=== PATIENT | female | born 1950 | race Caucasian/White ===

== ENCOUNTER → 2016-07-21 | Outpatient (CLI) | payer MEDICARE, BC ==
[~2016-07-21] MED LIST: ALEVE220 MG PO; AZITHROMYCIN250 MG PO; CARDIZEM CD)(T180 MG PO; CENTRUM SILVER1 EAC1 PO; CYMBALTA60 MG PO; MOBIC15 MG PO; MULTIPLE VITAM1 EACH PO; NEURONTIN100 MG PO; OSPHENA60 MG PO; PERCOCET 5-3251 EACH PO; PRAVACHOL20 MG PO; PROBIOTIC1 EAC1 PO; PROVENTIL HFA6.7 GM INH; SANCTURA 20MG20 MG PO; SINGULAIR10 MG PO; SODIUM BICARBONATE PO; SYMBICORT 16010.2 GM INH; ULTRAM50 MG PO; VENLAFAXINE H37.5 MG PO; VITAMIN B-121000 MCG PO; VITAMIN D35000 UNI1 PO; XOPENEX HF45 MCG/INH INH; ZITHROMAX250 MG PO
--- NOTE | ~2016-07-21 | ESTC ---
Cardiac Perfusion Imaging Demographics Patient Name KATHY BISHOP Gender Female A Patient Number [id number] Race Visit Number [id number] Ethnicity Corporate ID Room Number Accession Number [id number] Height Date of 1950 Weight Age 66 year(s) BSA Referring Physician Ta Escamilla Interpreting Ta Date of study 07/21/2016 Physician Francine Supervising /MAGDALENA PERES Technologist Francine Ordering Physician Stress Becki Vargas non destructive evaluation technician RUST Elder Meehan Stress ECG Reading Ta Gomez Physician Francine Procedure Procedure Type: Nuclear Stress Test:Cardiolite Stress Test Procedure Start time: 07/21/2016 09:30 Indications: Tachycardia. Conclusions Summary Perfusion Images: The overall quality of the study is fair, due to gastrointestinal tracer uptake. Left ventricular cavity is noted to be normal on the stress and rest studies. The right ventricle is not visualized and cannot be assessed. Stress SPECT images demonstrate homogenous tracer distribution throughout the myocardium except for a decrease uptake in the area involving the distal anterior wall with no significant reversibility and preserved wall motion consistent with soft tissue attenuation. Gated SPECT imaging reveals normal myocardial thickening and wall motion. The left ventricular ejection fraction was calculated to be 67%. Impression ECG portion of stress test is clinically negative for ischemia by diagnostic criteria. Myocardial perfusion imaging is probably normal. The distal anterior wall matched defect is consistent with soft tissue attenuation. Overall left ventricular systolic function was normal without regional wall motion abnormalities. Stress Protocols Resting ECG Normal sinus rhythm. Pre-stress physical exam: Patient assessed by Dr Fuentes prior to testing. Stress Protocol:Pharmacologic Peak HR:93 bpm HR/BP product:[id number] Peak BP:155/78 mmHg Predicted HR: 156 bpm % of predicted HR: 60 Test duration: 05:00 min Reason for termination:Infusion complete ECG Findings No ECG changes suggestive of ischemia. Arrhythmias No rhythm abnormality. Symptoms No symptoms with Lexiscan infusion. Stress Interpretation ECG portion of stress test is negative for ischemia by diagnostic criteria. Imaging Results Summed scores - Summed stress score: 17 - Summed rest score: 3 - Summed difference score: 14 Stress ejection Ejection fraction:67 % EDV :97 ml ESV :32 ml Stroke volume :65 ml LV mass :132 gr Imaging Protocols Rest Stress Isotope:Tc99m Sestamibi IV Isotope: Tc99m Sestamibi IV Isotope dose:14.7 mCi Isotope dose:43.9 mCi Date:07/21/2016 07:30 Date:07/21/2016 10:00 Technique: SPECT Technique: Gated Supine SPECT Supine Scan Time:45-60 minutes post Scan Time:45-60 minutes post injection injection Procedure Medications - Regadenoson (Lexiscan) 0.4 mg IV over 10-15 sec. I.V. 0.4 mg. Medical History Admission Data Admission date: 07/21/2016 Admission Time: 07:03 Hospital Status: Outpatient. Signatures dtt: FRANCINE FUENTES dtd: 07/21/16 0930 Physician Self Edit
[2016-07-21 07:50] LABS: ALBUMIN 3.5 gm/dL (3.5-5.0); TOTAL BILIRUBIN 0.5 mg/dL (0.0-1.5); TOTAL PROTEIN 6.7 g/dL (6.0-8.4)
== END | disposition disaster alternative care site (69) ==
LOC: GRAD 07:03 → GLAB 07:15 → GRAD 07:30
PROVIDERS: Internal Medicine Interventional Cardiology
DX: R00.0 Tachycardia, unspecified (principal); R53.83 Other fatigue
CPT/HCPCS: A9500; J2785

== ENCOUNTER → 2016-09-02 | Outpatient (CLI) | payer MEDICARE, BC | END | disposition disaster alternative care site (69) | LOC: GRAD 08:35 | DX: M54.41 Lumbago with sciatica, right side (principal); M48.04 Spinal stenosis, thoracic region; M48.54XD Collapsed vertebra, not elsewhere classified, thoracic region, subsequent encounter for fracture with routine healing; M43.17 Spondylolisthesis, lumbosacral region; M40.204 Unspecified kyphosis, thoracic region; M54.42 Lumbago with sciatica, left side ==

== ENCOUNTER → 2016-09-09 | Outpatient (CLI) | payer MEDICARE, BC ==
[2016-09-09 15:19] LABS: BASOPHIL # 0.1 K/uL (0.0-0.2); BASOPHIL % 1.1 %; EOSINOPHIL # 0.4 K/uL (0.0-0.5); EOSINOPHIL % 4.9 %; HEMATOCRIT 43.1 % (33.0-46.0); IMMATURE GRANULOCYTE % 0.3 %; LYMPHOCYTE # 1.6 K/uL (0.8-4.0); MCHC 32.5 gm/dL (32.0-36.5); MCV 95.6 fl (83.0-98.0); MONOCYTE # 0.7 K/uL (0.0-1.0); MONOCYTE % 9.2 %; MPV 9.5 fl (9.4-12.4); NEUTROPHIL # (ANC) 4.4 K/uL (1.8-7.8); NEUTROPHIL % 62.5 %; NRBC % 0 /100WBC (0-0.00); PLATELET COUNT 274 K/uL (150-450); RDW-CV 13.6 % (11.9-14.6); WBC 7.1 K/uL (4.0-11.0)
[2016-09-09 15:23] LABS: RBC 4.51 M/uL (3.50-5.50)
[2016-09-09 15:29] LABS: INR - (THERAPEUTIC) 0.99 (0.92-1.07); PROTIME 10.4 SECONDS (9.8-11.4)
[2016-09-09 15:32] LABS: ALBUMIN 3.9 gm/dL (3.5-5.0); ANION GAP 8.9 (10.0-19.0); BLOOD UREA NITROGEN 26 mg/dL (6-24); CHLORIDE 106 mMol/L (96-110); CO2 32 mMol/L (22-32); CREATININE 0.9 mg/dL (0.5-1.1); ESTIMATED GFR (MDRD EQUATION) > 60; PHOSPHORUS 2.8 mg/dL (2.5-4.9); POTASSIUM 3.9 mMol/L (3.7-5.1); SODIUM 143 mMol/L (135-145)
== END | disposition disaster alternative care site (69) ==
LOC: GOPD 09-07
PROVIDERS: Student in an Organized Health Care Education/Training Program
PROC: 0PS43ZZ Reposition Thoracic Vertebra, Percutaneous Approach (ICD-10-PCS; principal; 2016-09-09)
PROC: 0PU43JZ Supplement Thoracic Vertebra with Synthetic Substitute, Percutaneous Approach (ICD-10-PCS; 2016-09-09)
DX: S22.080A Wedge compression fracture of T11-T12 vertebra, initial encounter for closed fracture (principal); M54.6 Pain in thoracic spine; X58.XXXA Exposure to other specified factors, initial encounter
CPT/HCPCS: C1713; J0690; J2001; J7030

== ENCOUNTER → 2016-09-27 | Outpatient (CLI) | payer MEDICARE, BC | END | disposition disaster alternative care site (69) | LOC: GRAD 08:38 | DX: M53.2X9 Spinal instabilities, site unspecified (principal); M43.16 Spondylolisthesis, lumbar region; M47.896 Other spondylosis, lumbar region ==

== ENCOUNTER → 2016-10-13 | Day surgery (SDC) | payer MEDICARE, BC ==
--- NOTE | ~2016-10-13 | OR ---
PATIENT'S NAME: EDNA CHAVEZ [facility] AGE: 66 Y [address] ROOM: [place] [address] LOCATION: [facility] – [place] ADMIT DATE: 10/13/2016 OR/Procedure Report DISCHARGE DATE: FAMILY PHYSICIAN: LEANN GARCIA MD ATTENDING PHYSICIAN: Jefe Lopez SURGEON: Allan Livingston CRNA GAMEPLAY ENGINEER: DATE OF PROCEDURE: 10/13/2016 PATIENT OF: Jefe Lopez MD PREOPERATIVE DIAGNOSIS: Low back pain with bilateral radiculopathy. POSTOPERATIVE DIAGNOSIS: Low back pain with bilateral radiculopathy. The patient denied any anticoagulant use or blood thinner use. Denied any bleeding disorders, neurological problems, or diabetes. Diagnostic studies were MRI which was reviewed and order was for epidural steroid injection at L5- S1. DESCRIPTION OF PROCEDURE: Sterile gloves and mask were worn. The patient was placed in a sitting position and the back was prepped in a sterile fashion using Betadine solution. A sterile fenestrated drape was placed on the back to maintain sterility. 1% lidocaine was infiltrated into the skin and subcutaneous tissue in the area of the epidural needle puncture with a 22-gauge 5/8 inch needle. A 17-gauge Tuohy needle was advanced into the epidural space. Her interspaces were narrow and so with some repositioning, we were able to get a good loss of resistance. At that point in time, 4 mL of preserved free normal saline with 120 mg of Depo-Medrol were injected slowly. After approximately 3 mL, she had some discomfort on the left side and kind of a cramping type feeling. We had stopped the injection at that point in time, it did resolve and finished the injection. At that point in time, a sterile Band-Aid was placed on the back. There was no CSF and no rbc's, negative aspiration, and a good loss of resistance. The patient was placed on the back, notified to report if there were any complications at all. The risks and benefits were discussed prior to signing of the consent, and we did discuss nerve injury, infection, bleeding, worsening back pain, and cauda equina syndrome, etc,. The patient agreed to proceed. PRICILLA CHRISTIE/vondal PATIENT'S NAME: EDNA CHAVEZ [facility] AGE: 66 Y [address] ROOM: [place], [place] [address] LOCATION: [facility] – [place] ADMIT DATE: 10/13/2016 OR/Procedure Report DISCHARGE DATE: FAMILY PHYSICIAN: LEANN GARCIA MD ATTENDING PHYSICIAN: Jefe Lopez /[id number] d: 10/13/16 1944 t: 10/14/16 0637, OPERATIVE SUMMARY
== END | disposition disaster alternative care site (69) ==
LOC: GSDC 12:27 → GPOC 12:30
PROC: 3E0S33Z Introduction of Anti-inflammatory into Epidural Space, Percutaneous Approach (ICD-10-PCS; principal; 2016-10-13)
PROC: 3E0S3CZ (ICD-10-PCS; principal; 2016-10-13)
DX: M54.5 Low back pain (principal); M54.16 Radiculopathy, lumbar region
CPT/HCPCS: J1030; J1040

== ENCOUNTER 2016-10-27 09:23 | Day surgery (SDC) | payer MEDICARE, BC ==
--- NOTE | ~2016-10-27 | OR ---
PATIENT'S NAME: EDNA CHAVEZ [facility] AGE: 66 Y [address] ROOM: [place] [address] [place] [facility] [place]: 10/27/2016 OR/Procedure Report DISCHARGE DATE: 10/27/2016 FAMILY PHYSICIAN: Pawel Almazan MD ATTENDING PHYSICIAN: Jefe Lopez SURGEON: Ollie Christian MD BURR MACHINE OPERATOR: DATE OF PROCEDURE: 10/27/2016 PROCEDURE: Right L4-L5 selective nerve root block. INDICATION: The patient has lumbar back pain, lumbar degenerative disease with radiculopathy, has spondylolisthesis. Risks, benefits, and alternatives explained to the patient. She wished to proceed. She was taken into the operating room and placed in a prone position. Fluoroscopy was used to identify the L4-L5 disk level. She does have non fusion of the sacral joint, so it is considered to be a sixth lumbar vertebrae. DESCRIPTION OF PROCEDURE: The back was cleaned with Betadine x3. Sterile drape applied over top. The skin was numbed with 3 mL of 1% lidocaine. Next, a 5 inch 22-gauge spinal needle along with a gentle manual bend was advanced into position using fluoroscopic guidance. Once it was felt to be in position, 2 mL of contrast was injected. Three total in the AP and lateral views. It showed spread about the nerve root. Then, a mixture of 1 mL of 2% lidocaine and 2 mL of 0.25% bupivacaine was injected without complication. The needle was removed. Hemostasis achieved. PLAN: The patient will feel some relief of her pain. She was instructed to monitor her pain for the next 4 to 6 hours for the length of time during which the local anesthetic would last. She will record that and return to Dr. Lopez as needed. Additional levels may be required, pending the results. OLLIE CHRISTIAN MD JJP/modl /[id number] d: 10/29/161 t: 11/08/16 1251, OPERATIVE SUMMARY
[~2016-10-27 09:23] MED LIST changes: -PERCOCET 5-3251 EACH PO
[2016-11-16] MEDS ORDERED: PERCOCET 5-3251 EACH PO (10:57)
== END 2016-10-27 13:05 | disposition disaster alternative care site (69) ==
LOC: GSDC 09:23 → GPOC 10-27 15:00
PROC: 3E0R3BZ Introduction of Anesthetic Agent into Spinal Canal, Percutaneous Approach (ICD-10-PCS; principal; 2016-10-27)
PROC: 3E0R33Z Introduction of Anti-inflammatory into Spinal Canal, Percutaneous Approach (ICD-10-PCS; 2016-10-27)
DX: M51.16 Intervertebral disc disorders with radiculopathy, lumbar region (principal); M43.16 Spondylolisthesis, lumbar region; M47.26 Other spondylosis with radiculopathy, lumbar region; E78.00 Pure hypercholesterolemia, unspecified; I10 Essential (primary) hypertension; K21.9 Gastro-esophageal reflux disease without esophagitis; Z90.710 Acquired absence of both cervix and uterus; Z96.653 Presence of artificial knee joint, bilateral; Z79.891 Long term (current) use of opiate analgesic; Z79.899 Other long term (current) drug therapy; Z88.2 Allergy status to sulfonamides

== ENCOUNTER → 2016-11-16 | Day surgery (SDC) | payer MEDICARE, BC ==
[~2016-11-16] VITALS: Ht 162.6 cm; Wt 95.5 kg
[~2016-11-16] MED LIST changes: +PERCOCET 5-3251 EACH PO
--- NOTE | ~2016-11-16 | OR ---
PATIENT'S NAME: EDNA CHAVEZ [facility] AGE: 66 Y [address] 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 OPERATIONS PROPOSED AND PERFORMED: 1. Right L4-5 lateral recess decompression using the minimally invasive approach. 2. Microscope. 3. Fluoroscopy with interpretation. PREAMBLE: Prior starting the procedure, the MRI was reviewed and the lumbar vertebral bodies had been numbered by the radiologist and fortunately Dr. Christian who did the block on her was responsible for general anesthesia, he was able to confirm where the level that he blocked, which was the level that we went into which was the L4-5 level on the right side. DESCRIPTION OF PROCEDURE: Under general anesthesia, the patient was positioned prone. The back was prepped and draped in the usual fashion. The C-arm was then brought in. A spinal needle was placed one fingerbreadth from the midline directly opposite the L4-5 disk space. This position was confirmed fluoroscopically and I interpreted this position and was then marked on the skin. Next, an 18 mm incision was then carried out centered on this spot. This was a vertical incision. Next, a K-wire was passed through this spot to rest on the inferior part of the lamina of L4 directly opposite the L4- 5 disk space. This position was confirmed fluoroscopically. Next, the muscle dilators were sequentially passed over the K-wire and with each passage, we assure that we were directly opposite the L4-5 disk space. This was achieved fluoroscopically, and next the tubular retractor, the 18 mm tubular retractor was then passed over the muscle dilators and it also came to rest on the inferior part of the lamina of L4 directly opposite the L4-5 disk space. Final position was confirmed fluoroscopically. Next, the tubular retractor was then attached to the flexible arm of the flexible arm retractor. The flexible arm was tightened. The muscle dilators and K-wire were removed. The microscope was then brought in. With the aid of the microscope, we excised the remnants of the soft tissue in the inferior part of the lamina of L4. We then drilled off the inferior part of the lamina of L4, excised the yellow PATIENT'S NAME: EDNA CHAVEZ [facility] AGE: 66 Y [address] ROOM: [place] [address] LOCATION: [facility] [place] ADMIT DATE: 11/16/2016 OR/Procedure Report DISCHARGE DATE: FAMILY PHYSICIAN: LEANN GARCIA MD ATTENDING PHYSICIAN: Jefe Lopez ligament. The finding here was markedly hypertrophied facets and vertical lamina after we had excised the yellow ligament. We then continued removing the medial portion of the hypertrophied facet onto lateral to the dura and then we continued decompression inferiorly identifying the nerve root being the lateral to the nerve root and removing thickened yellow ligament and doing a foraminotomy following the nerve root into the neural foramen. After this was done, the compression that we saw at the beginning of the procedure, we had been taken care of, the nerve root was quite free as well as the dura. The wound was then thoroughly irrigated with bacitracin irrigation. Next, the tubular retractor was removed. A stitch 3-0 Vicryl was put in the subcutaneous fatty layer and subcuticular stitches. Steri-Strips were then used to bring the skin edges together. The patient tolerated the procedure well and was taken to the outpatient waiting area. MD SOLIS DORAN/yesenia /[id number] d: 11/16/16 1435 t: 11/19/16 1258, OPERATIVE SUMMARY
== END | disposition disaster alternative care site (69) ==
LOC: GPOC 11-12 13:00 → GSDC 06:46
PROC: 01NB0ZZ Release Lumbar Nerve, Open Approach (ICD-10-PCS; principal; 2016-11-16)
DX: M48.06 Spinal stenosis, lumbar region (principal); I11.9 Hypertensive heart disease without heart failure; E78.00 Pure hypercholesterolemia, unspecified; J45.40 Moderate persistent asthma, uncomplicated; K21.9 Gastro-esophageal reflux disease without esophagitis; Z98.890 Other specified postprocedural states
CPT/HCPCS: J0690; J1100; J2001; J2250; J2405; J7120